=== PATIENT | female | born 1965 | race Caucasian/White ===

== ENCOUNTER 2024-09-16 17:26 | Emergency (ER) | payer BC ==
[~2024-09-16] VITALS: Ht 160 cm; Wt 56.1 kg
[2024-09-16 17:31] VITALS: BP 146/100; TEMP 98.7; O2SAT 100
[2024-09-16] MEDS: BOOSTRIX VACCINE (TETANUS/DIPHTH/ACEL. PERTUSSIS) 0.5ML SYR IM.IMMUN ONE (20:21)
[2024-09-16] MEDS: LIDOCAINE 1% MDV 20ML VIAL SC ONE (20:55)
== END 2024-09-16 22:48 | disposition home or self-care (01) ==
LOC: M ED 17:26
DX: S61.411A Laceration without foreign body of right hand, initial encounter (principal); S00.93XA Contusion of unspecified part of head, initial encounter; S70.02XA Contusion of left hip, initial encounter; Y92.019 Unspecified place in single-family (private) house as the place of occurrence of the external cause; Y93.9 Activity, unspecified; Y99.9 Unspecified external cause status; W11.XXXA Fall on and from ladder, initial encounter; Z23 Encounter for immunization